=== PATIENT | female | born 1955 | race Caucasian/White ===

== ENCOUNTER → 2023-09-23 06:25 | Day surgery (SDC) | payer BC, SELFPAY | LOC: GI 06:25 | PROVIDERS: ATTENDING PHYSICIAN Internal Medicine Gastroenterology | DX: K22.4 Dyskinesia of esophagus (principal); R13.10 Dysphagia, unspecified | CPT/HCPCS: 43236; J0585 ==

== ENCOUNTER → 2024-05-30 07:30 | Outpatient (REF) | payer BC, SELFPAY | LOC: PAVMRI 07:30 | PROVIDERS: ATTENDING PHYSICIAN Internal Medicine Gastroenterology; FAMILY PHYSICIAN Family Medicine | DX: K86.2 Cyst of pancreas (principal) | CPT/HCPCS: 74183; A9575 ==